=== PATIENT | male | born 1960 | race African-American/Black ===

== ENCOUNTER → 2023-03-01 | Emergency (ER) | payer SELFPAY ==
[~2023-03-01] MED LIST: KETOROLAC 30 MG/ML INJ ONE; METOCLOPRAMIDE 10 MG/2mL INJ ONE; NA CHLORIDE 0.9% 1,000 ML ONE
--- NOTE | 2023-03-01 19:15 | RAD REPORT ---
EXAM DESCRIPTION: Nina Single View03/01/2023 6:49 pm CLINICAL HISTORY: COUGH COMPARISON: No comparisons TECHNIQUE: Portable AP view of the chest. FINDINGS: The lungs are clear. No pneumothorax or effusion. The cardiomediastinal contours are unre markable. IMPRESSION: No acute cardiopulmonary process.
[2023-03-01 19:28] LABS: Absolute Lymphocytes (CBC) 0.9 K/uL (0.7-4.9); Hematocrit 41.8 % (39.6-49.0); Lymphocytes % 15.9 % (15.3-44.8); MCV 87.5 fL (80-100); MPV 7.7 fL (7.6-11.3); Platelets 193 thou/uL (152-406); RBC Red Blood Cell Count 4.78 M/uL (4.33-5.43)
[2023-03-01 19:51] LABS: Albumin 3.8 g/dL (3.4-5.0); Bilirubin Direct 0.3 mg/dL (0-0.2); Bilirubin Indirect, Calculated 0.9 mg/dL (0.2-0.8); Bilirubin Total 1.2 mg/dL (0.2-1.0); Magnesium 1.9 mg/dL (1.6-2.4); Potassium 3.8 mEq/L (3.5-5.1); Protein, Total 8.3 g/dL (6.4-8.2); Troponin High Sensitivity 5.1 pg/mL (<58.9)
[2023-03-01 22:12] LABS: Specific Gravity 1.007 (1.005-1.030); Urine Bacteria None Seen /HPF (<20); Urine Bilirubin NEGATIVE (Negative); Urine Blood Negative (Negative); Urine Clarity Clear (Clear); Urine Color Colorless (Yellow); Urine Glucose NEGATIVE (Negative); Urine Protein NEGATIVE (Negative); Urine RBC <5 /HPF (None Seen); Urine Urobilinogen Normal (Normal); Urine pH 7.5 (5.0-7.0)
--- NOTE | 2023-03-01 22:18 | ER ---
Nurse's Notes [facility] Name: Suresh Parson Age: 62 yrs Sex: Male : 1960 Arrival Date: 03/01/2023 Time: 18:07 Bed 5 Private MD: Diagnosis: Influenza due to other identified influenza virus with other respiratory manifestations;Headache;Weakness Presentation: 03/01 18:17 Chief complaint: EMS states: EMS called for fever and weakness, temp 100.0, pt placed ph in lobby and began yelling that he was going to pass out, SO reports cough, congestion, fever 100.8, and nausea x 4 days. Coronavirus screen: Vaccine status: Patient reports being unvaccinated. Ebola Screen: No symptoms or risks identified at this time. Initial Sepsis Screen: Does the patient meet any 2 criteria? No. Patient's initial sepsis screen is negative. Does the patient have a suspected source of infection? No. Patient's initial sepsis screen is negative. Risk Assessment: Do you want to hurt yourself or someone else? Patient reports no desire to harm self or others. Onset of symptoms was March 01, 2023. 18:17 Method Of Arrival: EMS: [facility] ph 18:17 Acuity: ESSENCE 3 ph Historical: - Allergies: 18:17 No Known Allergies; ph - PMHx: 18:17 None; ph - PSHx: 18:17 None; ph - Immunization history:: Adult Immunizations unknown. - Social history:: Smoking status: Patient denies any tobacco usage or history of. Screenin:00 [facility] ED Fall Risk Assessment (Adult) History of falling in the last 3 months, vc1 including since admission No falls in past 3 months (0 pts) Confusion or Disorientation No (0 pts) Intoxicated or Sedated No (0 pts) Impaired Gait No (0 pts) Mobility Assist Device Used No (0 pt) Altered Elimination No (0 pt) Score/Fall Risk Level 0 - 2 = Low Risk Oriented to surroundings, Maintained a safe environment, Educated pt \T\ family on fall prevention, incl call for assistance when getting out of bed. Abuse screen: Denies threats or abuse. Nutritional screening: No deficits noted. Tuberculosis screening: No symptoms or risk factors identified. Assessment: 19:00 General: Appears in no apparent distress. uncomfortable, ill, Behavior is restless, vc1 Reports fever for feeling ill for fatigue for. Pain: Complains of pain in generalized body aches. Neuro: Level of Consciousness is awake, alert, obeys commands, Oriented to person, place, time, situation, Appropriate for age. Cardiovascular: No deficits noted. Respiratory: Airway is patent Respiratory effort is even, unlabored, Respiratory pattern is regular, symmetrical. GI: No deficits noted. No signs and/or symptoms were reported involving the gastrointestinal system. : No deficits noted. No signs and/or symptoms were reported regarding the genitourinary system. EENT: No deficits noted. No signs and/or symptoms were reported regarding the EENT system. Derm: No deficits noted. No signs and/or symptoms reported regarding the dermatologic system. 19:44 Reassessment: No changes from previously documented assessment. Patient and/or family vc1 updated on plan of care and expected duration. Pain level reassessed. Patient is alert, oriented x 3, equal unlabored respirations, skin warm/dry/pink. 20:57 Reassessment: Patient and/or family updated on plan of care and expected duration. Pain vc1 level reassessed. Patient is alert, oriented x 3, equal unlabored respirations, skin warm/dry/pink. Patient states feeling better. Patient states symptoms have improved. 22:14 Reassessment: No changes from previously documented assessment. Patient and/or family vc1 updated on plan of care and expected duration. Pain level reassessed. Patient is alert, oriented x 3, equal unlabored respirations, skin warm/dry/pink. Vital Signs: 18:17 BP 125 / 78; Pulse 88; Resp 18; Temp 100.2; Pulse Ox 99% on R/A; Weight 74.84 kg; ph Height 5 ft. 6 in. ; 19:15 BP 145 / 96; Pulse 73; Resp 18; Pulse Ox 100% ; vc1 20:00 BP 145 / 90; Pulse 76; Resp 18; Pulse Ox 100% ; vc1 20:05 Temp 99.2; vc1 20:45 BP 141 / 73; Pulse 83; Resp 18; Pulse Ox 99% ; vc1 21:45 BP 126 / 84; Pulse 80; Resp 18; Pulse Ox 96% ; vc1 18:17 Body Mass Index 26.63 (74.84 kg, 167.64 cm) ED Course: 18:10 Patient arrived in ED. ae5 18:19 Triage completed. ph 18:19 Arm band placed on Patient placed in an exam room. ph 18:20 Elvin Taveras PA is PHCP. cp 18:20 Jefferson Lora MD is Attending Physician. cp 18:51 XRAY Chest (1 view) In Process Unspecified. EDMS 19:00 Patient has correct armband on for positive identification. Bed in low position. Call vc1 light in reach. Adult w/ patient. Pulse ox on. NIBP on. 19:13 Jesica Bal, MOI is Primary Nurse. vc1 19:18 Inserted saline lock: 20 gauge in right antecubital area, using aseptic technique. mc5 Blood collected. 22:58 No provider procedures requiring assistance completed. IV discontinued, intact, jb4 bleeding controlled, No redness/swelling at site. Pressure dressing applied. Administered Medications: 20:45 Drug: metoCLOPramide IVP 10 mg IVP once; over 1 to 2 minutes Route: IVP; Site: right vc1 antecubital; 20:58 Follow up: Response: No adverse reaction; Marked relief of symptoms; Pain is decreased vc1 20:45 Drug: Ketorolac IVP 15 mg IVP once Route: IVP; Site: right antecubital; vc1 20:58 Follow up: Response: No adverse reaction; Marked relief of symptoms; Pain is decreased vc1 20:53 Drug: NS 0.9% IV 1000 ml IV at 1000 ml/hr Per protocol; 1000 mL bolus Route: IV; Rate: vc1 1000 ml/hr; Site: right antecubital; Medication: 19:34 VIS not applicable for this client. vc1 Outcome: 22:17 Discharge ordered by . cp 22:57 Discharged to home ambulatory, with family, jb4 22:57 Condition: stable 22:57 Discharge instructions given to patient, Instructed on discharge instructions, follow up and referral plans. medication usage, Demonstrated understanding of instructions, follow-up care, medications, Prescriptions given X 4, 22:58 Patient left the ED. jb4 Signatures: Dispatcher [employer] EDMS Molly Grey RN RN Elvin Taveras PA PA cp Ángel Pierce RN MOI jb4 Jesica Bal RN RN vc1 Paige Castro mc5 Frederick Kelly ae5
--- NOTE | 2023-03-01 22:18 | EDPHYS ---
Physician Documentation [facility] Name: Suresh Parson Age: 62 yrs Sex: Male : 1960 Arrival Date: 03/01/2023 Time: 18:07 Bed 5 Private MD: ED Physician Jefferson Lora HPI: 03/01 18:45 This 62 yrs old Black Male presents to ER via EMS with complaints of Fever, Weakness. cp 18:45 The patient reports fever, that was measured at 100.8 degrees Fahrenheit. Onset: The cp symptoms/episode began/occurred 3 day(s) ago. 18:45 Associated signs and symptoms: Pertinent positives: cough, nausea, sore throat, cp congestion, near syncope. 18:45 Severity of symptoms: in the emergency department the symptoms are unchanged despite cp home interventions. Historical: - Allergies: 18:17 No Known Allergies; ph - PMHx: 18:17 None; ph - PSHx: 18:17 None; ph - Immunization history:: Adult Immunizations unknown. - Social history:: Smoking status: Patient denies any tobacco usage or history of. ROS: 18:50 Constitutional: Positive for body aches, chills, fever, cp 18:50 Eyes: Negative for injury, pain, redness, and discharge, cp 18:50 ENT: Positive for sore throat, Negative for drainage from ear(s), ear pain, difficulty swallowing, difficulty handling secretions, 18:50 Neck: Negative for stiffness, 18:50 Cardiovascular: Positive for chest pain, with cough, 18:50 Respiratory: Positive for cough, "sounds productive", shortness of breath, 18:50 Abdomen/GI: Positive for nausea, Negative for vomiting, diarrhea, constipation, 18:50 Neuro: Positive for headache, weakness, Negative for altered mental status, 18:50 All other systems are negative, Exam: 18:55 Constitutional: The patient appears in no acute distress, alert, awake, cp non-diaphoretic, non-toxic, well developed, well nourished, uncomfortable, 18:55 Head/Face: Normocephalic, atraumatic. cp 18:55 Eyes: Periorbital structures: appear normal, Pupils: equal, round, and reactive to light and accomodation, Extraocular movements: intact throughout, Conjunctiva: normal, no exudate, no injection, Sclera: no appreciated abnormality, Lids and lashes: appear normal, bilaterally, 18:55 ENT: External ear(s): are unremarkable, Ear canal(s): are normal, clear, TM's: bulging, is not appreciated, bilaterally, dullness, bilaterally, erythema, is not appreciated, bilaterally, Nose: is normal, Mouth: Lips: moist, Oral mucosa: moist, Posterior pharynx: Airway: no evidence of obstruction, patent, erythema, that is mild, exudate, is not appreciated, 18:55 Neck: ROM/movement: is normal, is supple, no meningismus, no nuchal rigidity, 18:55 Chest/axilla: Inspection: normal, Palpation: is normal, no crepitus, no tenderness, 18:55 Cardiovascular: Rate: normal, Rhythm: regular, Edema: is not appreciated, JVD: is not appreciated, 18:55 Respiratory: the patient does not display signs of respiratory distress, Respirations: labored breathing, is not present, intercostal retractions, are absent, Breath sounds: decreased breath sounds, are not appreciated, stridor, is not appreciated, + upper airway congestion. wheezing: is not appreciated, 18:55 Abdomen/GI: Inspection: abdomen appears normal, Palpation: soft, in all quadrants, nontender, in all quadrants, 18:55 Neuro: Orientation: to person, place \\T\\ time. Mentation: is normal, Motor: moves all fours, strength is normal, Sensation: is normal, 19:27 ECG was reviewed by the Attending Physician. cp Vital Signs: 18:17 BP 125 / 78; Pulse 88; Resp 18; Temp 100.2; Pulse Ox 99% on R/A; Weight 74.84 kg; ph Height 5 ft. 6 in. ; 19:15 BP 145 / 96; Pulse 73; Resp 18; Pulse Ox 100% ; vc1 20:00 BP 145 / 90; Pulse 76; Resp 18; Pulse Ox 100% ; vc1 20:05 Temp 99.2; vc1 20:45 BP 141 / 73; Pulse 83; Resp 18; Pulse Ox 99% ; vc1 21:45 BP 126 / 84; Pulse 80; Resp 18; Pulse Ox 96% ; vc1 18:17 Body Mass Index 26.63 (74.84 kg, 167.64 cm) ph MDM: 18:20 Patient medically screened. 22:16 Data reviewed: vital signs, nurses notes, lab test result(s), EKG, radiologic studies, cp plain films. 22:16 Differential diagnosis: viral Infection, bacterial infection, bronchitis, pneumonia cp UTI, gastroenteritis, meningitis. I considered the following discharge prescriptions or medication management in the emergency department Medications were administered in the Emergency Department. See MAR. Counseling: I had a detailed discussion with the patient and/or guardian regarding the historical points, exam findings, and any diagnostic results supporting the discharge/admit diagnosis, lab results, radiology results, to return to the emergency department if symptoms worsen or persist or if there are any questions or concerns that arise at home. Response to treatment: the patient's symptoms have markedly improved after treatment, and as a result, I will discharge patient. 03/01 18:40 Order name: Basic Metabolic Panel; Complete Time: 20:36 03/01 21:06 Interpretation: Normal except: NA 132; GLUC 110; GFR 66. 03/01 18:40 Order name: CBC with Diff; Complete Time: 20:36 03/01 21:07 Interpretation: Normal except: MN% 12.9. 03/01 18:40 Order name: LFT's; Complete Time: 20:36 03/01 21:07 Interpretation: Normal except: AST 38; BILIT 1.2; BILID 0.3; IBILI, CALC 0.9; TP 8.3; cp GLOB 4.5; A/G 0.8. 03/01 18:40 Order name: Magnesium; Complete Time: 20:36 03/01 18:40 Order name: Troponin HS; Complete Time: 20:36 03/01 18:40 Order name: COVID-19 SARS RT PCR; Complete Time: 20:36 03/01 18:40 Order name: Influenza Screen (a \\T\\ B); Complete Time: 20:36 03/01 21:07 Interpretation: Normal except: FLUB FLU B ----- POSITIVE for FLU B protein antigen. 03/01 18:40 Order name: Urinalysis W/Microscopic; Complete Time: 22:14 03/01 22:14 Interpretation: Normal except: UKET 1+; UPH 7.5. 03/01 18:40 Order name: XRAY Chest (1 view); Complete Time: 20:37 cp 03/01 18:40 Order name: EKG; Complete Time: 18:41 cp 03/01 18:40 Order name: Cardiac monitoring; Complete Time: 19:40 cp 03/01 18:40 Order name: EKG - Nurse/Tech; Complete Time: 19:34 cp 03/01 18:40 Order name: IV Saline Lock; Complete Time: 19:17 cp 03/01 18:40 Order name: Labs collected and sent; Complete Time: 19:18 cp 03/01 18:40 Order name: O2 Per Protocol; Complete Time: 19:18 cp 03/01 18:40 Order name: O2 Sat Monitoring; Complete Time: 19:18 cp EC:27 Rate is 73 beats/min. Rhythm is regular. ME interval is normal. QRS interval is normal. cp QT interval is normal. T waves are Inverted in lead aVR. Interpreted by me. Reviewed by me. Administered Medications: 20:45 Drug: metoCLOPramide IVP 10 mg IVP once; over 1 to 2 minutes Route: IVP; Site: right vc1 antecubital; 20:58 Follow up: Response: No adverse reaction; Marked relief of symptoms; Pain is decreased vc1 20:45 Drug: Ketorolac IVP 15 mg IVP once Route: IVP; Site: right antecubital; vc1 20:58 Follow up: Response: No adverse reaction; Marked relief of symptoms; Pain is decreased vc1 20:53 Drug: NS 0.9% IV 1000 ml IV at 1000 ml/hr Per protocol; 1000 mL bolus Route: IV; Rate: vc1 1000 ml/hr; Site: right antecubital; Disposition Summary: 03/01/23 22:17 Discharge Ordered Notes: Location: Home cp Problem: new cp Symptoms: have improved cp Condition: Stable cp Diagnosis - Influenza due to other identified influenza virus with other respiratory cp manifestations - Headache cp - Weakness cp Followup: cp - With: Private Physician - When: 1 - 2 days - Reason: Worsening of condition Discharge Instructions: - Discharge Summary Sheet cp - Migraine Headache cp - Influenza, Adult cp - Weakness cp Forms: - Medication Reconciliation Form cp - Thank You Letter cp - Antibiotic Education cp - Prescription Opioid Use cp - Patient Portal Instructions cp - Leadership Thank You Letter cp Prescriptions: - Bromfed DM 2-30-10 mg/5 mL Oral syrup - administer 10 milliliter ORAL route every 6 hours as needed for cold symptoms; cp 240 milliliter; Refills: 0, Product Selection Permitted - Ibuprofen 800 mg Oral Tablet - take 1 tablet ORAL route every 8 hours As needed take with food; 30 tablet; cp Refills: 0, Product Selection Permitted - Zofran 4 mg Oral Tablet - take 1 tablet ORAL route every 12 hours As needed; 20 tablet; Refills: 0, cp Product Selection Permitted - Tamiflu 75 mg Oral capsule - take 1 tablet ORAL route every 12 hours for 5 days; 10 tablet; Refills: 0, cp Product Selection Permitted Signatures: Dispatcher [employer] Molly Valdes RN RN ph Page, Corey, PA PA cp Calcote, Vanessa, RN RN vc1
[2023-03-02 04:31] VITALS: BP 126/84; TEMP 99.2; O2SAT 96
--- NOTE | 2023-03-02 13:24 | EKG ---
Test Date: 2023-03-01 Test Time: 19:22:23 Technical Documentation Specialist: TRACEY MEASUREMENT RESULTS: Intervals: Rate: 73 DE: 164 QRSD: 78 QT: 374 QTc: 412 [place]: P: 61 DE: 164 QRS: 62 T: 52 INTERPRETIVE STATEMENTS: Normal sinus rhythm Normal ECG No previous ECG available for comparison Electronically Signed On 03-02-23 13:22:25 VERIFYING SPECIALIST by Keo Alcaraz
== END ==
LOC: ER 18:07
DX: J10.1 Influenza due to other identified influenza virus with other respiratory manifestations (principal); R51.9 Headache, unspecified; Z11.52 Encounter for screening for COVID-19
CPT/HCPCS: 36415; 71045; 80048; 80076; 81001; 83735; 84484; 85025; 87635; 87804; 93005; 96374; 96375; 99284; J2765; J7030

== ENCOUNTER 2024-02-29 18:50 | Emergency (ER) | payer BC ==
[2024-02-29 19:35] LABS: Absolute Eosinophils 0.2 K/uL (0-0.5); Absolute Lymphocytes (CBC) 1.7 K/uL (0.7-4.9); Absolute Monocytes 0.5 K/uL (0.1-1.3); Absolute Neutrophil 8.1 K/uL (1.8-8.0); Basophils % 0.4 % (0-1.3); Eosinophils % 1.9 % (0-4.4); Hematocrit 45.2 % (39.6-49.0); Hemoglobin 14.8 g/dL (13.6-17.9); Lymphocytes % 15.7 % (15.3-44.8); MCH 29.5 pg (27.0-35.0); MCHC 32.8 g/dL (32.0-36.0); MCV 89.8 fL (80-100); MPV 7.5 fL (7.6-11.3); Monocytes % 5.2 % (3.3-12.3); Neutrophils % 76.8 % (41.7-73.7); Nucleated Red Blood Cells % 0.1 % (0-0); Platelets 285 thou/uL (152-406); RBC Red Blood Cell Count 5.03 M/uL (4.33-5.43); Red Cell Distribution Width 13.9 % (12.1-15.2)
[2024-02-29 20:04] LABS: PT Prothrombin Time 12.7 SECONDS (9.4-12.5); PTT, Activated Partial Thromb 26.1 SECONDS (24.3-36.9); Protime INR 1.14
[2024-02-29 20:17] LABS: Albumin 3.4 g/dL (3.4-5.0); Albumin/Globulin Ratio 0.7 (1.1-1.8); Anion Gap 7.7 mEq/L (5.0-15.0); Bilirubin Direct 0.3 mg/dL (0-0.2); Bilirubin Indirect, Calculated 0.7 mg/dL (0.2-0.8); Globulin 4.6 g/dL (2.3-3.5); Magnesium 1.8 mg/dL (1.6-2.4); Potassium 3.7 mEq/L (3.5-5.1); Troponin High Sensitivity 4.5 pg/mL (<58.9)
--- NOTE | 2024-02-29 20:21 | RAD REPORT ---
EXAMINATION: ONE VIEW CHEST XR CLINICAL INDICATION: Male, 63 years old.,COUGH TECHNIQUE: Frontal chest projection is submitted. Examination is limited by patient positioning and t echnique. COMPARISON: 03/01/2023 FINDINGS: The lungs are well inflated and clear. No pneumothorax or sizable effusion. The heart is normal in s ize. Mediastinal contours are unremarkable. IMPRESSION: No acute intrathoracic abnormalities.
[2024-02-29] MEDS ORDERED: ONDANSETRON 4 MG/2 ML VIAL ONE (20:27)
--- NOTE | 2024-02-29 21:07 | ER ---
Nurse's Notes [facility] Name: Suresh Parson Age: 63 yrs Sex: Male : 1960 Arrival Date: 02/29/2024 Time: 18:50 Bed 7 Private MD: Diagnosis: Syncope Near Presentation: 02/28 18:52 Chief complaint: EMS states: Syncopal episode, has also been experiencing N/V/D, + ph orthostatics, lowest BP 90s systolic, IV established, NS infusing upon arrival to ED. Coronavirus screen: Vaccine status: Patient reports being unvaccinated. Ebola Screen: No symptoms or risks identified at this time. Risk Assessment: Do you want to hurt yourself or someone else? Patient reports no desire to harm self or others. 18:52 Method Of Arrival: EMS: [facility] 18:57 Initial Sepsis Screen: Does the patient meet any 2 criteria? No. Patient's initial ph sepsis screen is negative. Does the patient have a suspected source of infection? No. Patient's initial sepsis screen is negative. Onset of symptoms was February 29, 2024. 18:57 Acuity: ESSENCE 3 ph Triage Assessment: 18:59 General: Appears in no apparent distress. comfortable, well groomed, Behavior is calm, ph cooperative, appropriate for age. Pain: Denies pain. Neuro: Level of Consciousness is awake, alert, obeys commands, Oriented to person, place, time, situation, Reports a syncopal episode. Cardiovascular: Capillary refill < 3 seconds in bilateral fingers Patient's skin is warm and dry. Respiratory: Airway is patent Respiratory effort is even, unlabored, Respiratory pattern is regular, symmetrical. GI: Reports diarrhea, nausea, vomiting, Patient currently denies abdominal pain. Derm: Skin is pink, warm \T\ dry. Historical: - Allergies: 18:59 No Known Allergies; ph - PMHx: 18:59 None; ph - PSHx: 18:59 None; ph - Immunization history:: Adult Immunizations unknown. - Infectious Disease History:: Denies. - Social history:: Smoking status: Patient denies any tobacco usage or history of. Screenin:00 [facility] ED Fall Risk Assessment (Adult) History of falling in the last 3 months, ph including since admission No falls in past 3 months (0 pts) Confusion or Disorientation No (0 pts) Intoxicated or Sedated No (0 pts) Impaired Gait No (0 pts) Mobility Assist Device Used No (0 pt) Altered Elimination No (0 pt) Score/Fall Risk Level 0 - 2 = Low Risk Oriented to surroundings, Maintained a safe environment, Hourly rounding (assess needs \T\ fall precautionary measures) done. Abuse screen: Denies threats or abuse. Denies injuries from another. Nutritional screening: No deficits noted. Tuberculosis screening: No symptoms or risk factors identified. Assessment: 21:27 General: Appears in no apparent distress. Behavior is calm, cooperative, appropriate cp4 for age. Pain: Denies pain. Neuro: Level of Consciousness is awake, alert, obeys commands, Oriented to person, place, time, situation. Cardiovascular: Rhythm is sinus rhythm with unifocal PVCs. Respiratory: Airway is patent Respiratory effort is even, unlabored. GI: No signs and/or symptoms were reported involving the gastrointestinal system. : No signs and/or symptoms were reported regarding the genitourinary system. EENT: No signs and/or symptoms were reported regarding the EENT system. Derm: No signs and/or symptoms reported regarding the dermatologic system. Musculoskeletal: No signs and/or symptoms reported regarding the musculoskeletal system. Vital Signs: 18:57 BP 128 / 74; Pulse 66; Resp 18; Temp 97.6; Pulse Ox 97% on R/A; Weight 81.65 kg; Height ph 5 ft. 6 in. ; Pain 0/10; 20:41 BP 133 / 75 RA Supine; Pulse 82; Resp 18; oe 20:43 BP 139 / 85 RA Sitting; Pulse 87; Resp 17; oe 20:45 BP 135 / 78 RA Standing; Pulse 85; Resp 18; oe 18:57 Body Mass Index 29.05 (81.65 kg, 167.64 cm) ph 18:57 Pain Scale: Adult ph ED Course: 18:51 Patient arrived in ED. ph 18:51 Enid Rocha FNP-C is PHCP. kb 18:51 Radu Soria DO is Attending Physician. kb 18:53 Arm band placed on Patient placed in an exam room, on a stretcher, on pulse oximetry. ph 18:58 Triage completed. ph 19:04 Juancarlos Valentino, RN is Primary Nurse. bp 19:39 Chest Single View XRAY In Process Unspecified. EDMS 21:27 Bed in low position. Call light in reach. Side rails up X2. Provided Education on: near cp4 syncope. 21:27 No provider procedures requiring assistance completed. intact, bleeding controlled, No cp4 redness/swelling at site. Pressure dressing applied. Administered Medications: 19:04 Drug: NS 0.9% IV 1000 ml IV at 1000 ml once; to be given as a bolus over 60 minutes ph Route: IV; Rate: 1000 ml; Site: left antecubital; 20:57 Follow up: IV Status: Completed infusion cp4 20:30 Drug: Ondansetron IVP 4 mg IVP once; over 2 minutes Route: IVP; Site: left antecubital; cp4 20:57 Follow up: Response: No adverse reaction cp4 Medication: 21:27 VIS not applicable for this client. cp4 Outcome: 21:06 Discharge ordered by . kb 21:27 Discharged to home via wheelchair, cp4 21:27 Condition: stable 21:27 Discharge instructions given to patient, family, Instructed on discharge instructions, follow up and referral plans. medication usage, Demonstrated understanding of instructions, follow-up care, medications, Prescriptions given X 1, 21:29 Patient left the ED. cp4 Signatures: Dispatcher [employer] EDME Enid Rocha, SUNNY PALACIOS-Molly Sibley, RN RN Neo Cunningham Brian, RN RN Elizabeth Linares cp4
--- NOTE | 2024-02-29 21:07 | EDPHYS ---
Physician Documentation [facility] Name: Suresh Parson Age: 63 yrs Sex: Male : 1960 Arrival Date: 02/29/2024 Time: 18:50 Bed 7 Private MD: ED Physician Radu Soria HPI: 02/28 19:58 This 63 yrs old Black Male presents to ER via EMS with complaints of Syncope. kb 19:58 Pt is a 63 year old male who presents for near syncope. States he has had diarrhea kb today and one episode of vomiting. States he has been getting dizzy when he stands from a sitting position and almost passed out just lpta. States he feels back to normal now. Reports his mother is in the hospital so he has been back and forth for 2 days and hasn't been taking care of himself. . Historical: - Allergies: 18:59 No Known Allergies; ph - PMHx: 18:59 None; ph - PSHx: 18:59 None; ph - Immunization history:: Adult Immunizations unknown. - Infectious Disease History:: Denies. - Social history:: Smoking status: Patient denies any tobacco usage or history of. ROS: 19:58 Constitutional: As per HPI kb Exam: 19:57 Constitutional: This is a well developed, well nourished patient who is awake, alert, kb and in no acute distress. Head/Face: Normocephalic, atraumatic. ENT: Moist Mucous membranes Cardiovascular: Regular rate Respiratory: Respirations even and unlabored. No increased work of breathing. Talking in full sentences Abdomen/GI: Soft, non-tender. No distention Skin: Warm, dry with normal turgor. Normal color. MS/ Extremity: Pulses equal, no cyanosis. Neurovascular intact. Full, normal range of motion. Neuro: Awake and alert, GCS 15, oriented to person, place, time, and situation. 19:57 ECG was reviewed by the Attending Physician. Vital Signs: 18:57 BP 128 / 74; Pulse 66; Resp 18; Temp 97.6; Pulse Ox 97% on R/A; Weight 81.65 kg; Height ph 5 ft. 6 in. ; Pain 0/10; 20:41 BP 133 / 75 RA Supine; Pulse 82; Resp 18; oe 20:43 BP 139 / 85 RA Sitting; Pulse 87; Resp 17; oe 20:45 BP 135 / 78 RA Standing; Pulse 85; Resp 18; oe 18:57 Body Mass Index 29.05 (81.65 kg, 167.64 cm) ph 18:57 Pain Scale: Adult ph MDM: 18:51 Medical Screening Exam initiated kb 19:58 Data reviewed: vital signs, nurses notes. kb 21:05 Differential Diagnosis: cardiac arrhythmia, idiopathic syncope, vasovagal episode, kb dehydration. Consideration of Admission/Observation Escalation of care including admission/observation considered. admission considered but pt is asymptomatic, feeling better and prefers to go home. Test considered but Not performed: CT: ct head considered but pt has no neuro deficits. Historians other than the Patient: EMS: [facility]. Counseling: I had a detailed discussion with the patient and/or guardian regarding the historical points, exam findings, and any diagnostic results supporting the discharge/admit diagnosis, lab results, the need for outpatient follow up, a family practitioner, to return to the emergency department if symptoms worsen or persist or if there are any questions or concerns that arise at home. 02/28 18:56 Order name: Basic Metabolic Panel; Complete Time: 20:20 kb 02/28 18:56 Order name: CBC with Diff; Complete Time: 19:40 kb 02/28 18:56 Order name: Hepatic Function; Complete Time: 20:20 kb 02/28 18:56 Order name: Magnesium; Complete Time: 20:20 kb 02/28 18:56 Order name: Protime (+inr); Complete Time: 20:20 kb 02/28 18:56 Order name: Ptt, Activated; Complete Time: 20:20 kb 02/28 18:56 Order name: Troponin High Sensitivity; Complete Time: 20:20 kb 02/28 18:56 Order name: Chest Single View XRAY; Complete Time: 20:22 kb 02/28 18:56 Order name: Cardiac monitoring; Complete Time: 19:38 kb 02/28 18:56 Order name: EKG - Nurse/Tech; Complete Time: 19:38 kb 02/28 18:56 Order name: IV Saline Lock; Complete Time: 19:04 kb 02/28 18:56 Order name: Labs collected and sent; Complete Time: 19:38 kb 02/28 18:56 Order name: NPO; Complete Time: 19:04 kb 02/28 18:56 Order name: O2 Per Protocol; Complete Time: 19:04 kb 02/28 18:56 Order name: O2 Sat Monitoring; Complete Time: 19: kb EC: Rate is 81 beats/min. Rhythm is regular. QRS [place] is Normal. PA interval is normal at kb 156 msec. QRS interval is normal at 76 msec. QT interval is normal at 434 msec. Administered Medications: : Drug: NS 0.9% IV 1000 ml IV at 1000 ml once; to be given as a bolus over 60 minutes ph Route: IV; Rate: 1000 ml; Site: left antecubital; 20:57 Follow up: IV Status: Completed infusion cp4 20:30 Drug: Ondansetron IVP 4 mg IVP once; over 2 minutes Route: IVP; Site: left antecubital; cp4 20:57 Follow up: Response: No adverse reaction cp4 Disposition: 20:20 I was immediately available on-site in the Emergency Department for consultation in the ms3 care of the patient. Disposition Summary: 02/29/24 21:06 Discharge Ordered Notes: Location: Home kb Condition: Stable kb Diagnosis - Syncope Near kb Followup: kb - With: Emergency Department - When: As needed - Reason: Worsening of condition Followup: kb - With: Private Physician - When: 2 - 3 days - Reason: Recheck today's complaints, Continuance of care, Re-evaluation by your physician Discharge Instructions: - Discharge Summary Sheet kb - Near-Syncope, [id number] kb Forms: - Medication Reconciliation Form kb - Antibiotic Education kb - Prescription Opioid Use kb - Patient Portal Instructions kb - Leadership Thank You Letter kb Prescriptions: - Zofran 4 mg Oral tablet - take 1 tablet ORAL route every 6 hours As needed; 12 tablet; Refills: 0, kb Product Selection Permitted Signatures: Dispatcher [employer] EDMS Enid Rocha, SUNNY KIMBLEP-Molly Sibley RN RN Radu Soria DO DO ms3 Elizabeth Valenzuela cp4 Corrections: (The following items were deleted from the chart) 18:57 18:57 Chest Single View+[email or web address] ordered. EDMS EDMS
[2024-02-29 21:56] VITALS: TEMP 97.6; O2SAT 97
[2024-02-29 21:59] VITALS: BP 135/78
--- NOTE | 2024-03-03 10:50 | EKG ---
Test Date: 2024-02-29 Test Time: 19:35:44 Principal Strategist: DAVE MEASUREMENT RESULTS: Intervals: Rate: 81 PA: 156 QRSD: 76 QT: 374 QTc: 434 [place]: P: 66 PA: 156 QRS: 71 T: 39 INTERPRETIVE STATEMENTS: Sinus rhythm with occasional premature ventricular complexes Nonspecific T wave abnormality Abnormal ECG Compared to ECG 03/01/2023 19:22:23 Ventricular premature complex(es) now present T-wave abnormality now present Electronically Signed On 03-03-24 10:49:44 MOLD STRIPPER by Mahesh May
== END 2024-02-29 21:29 | disposition home or self-care (01) ==
LOC: ER 18:50
DX: R55 Syncope and collapse (principal)
CPT/HCPCS: 96361; 93005; 85025; 80048; 36415; 83735; 85610; 80076; 85730; 84484; 71045; 96374; 99284; J2405